=== PATIENT | female | born 1990 | race American Indian/Alaskan Native ===

== ENCOUNTER 2019-01-28 11:09 | Inpatient (IN) | payer BC, OTHER ==
[2019-01-28] MEDS ORDERED: SUBLIMAZE ONE (11:33)
[2019-01-28] MEDS ORDERED: XYLOCAINE 2% INFILTRATI ONE ×2 (11:48→12:00)
[2019-01-28] MEDS ORDERED: MILK OF MAGNESIA PO PRN (11:53)
[2019-01-28] MEDS ORDERED: TUCKS PAD TP PRN (11:53)
[2019-01-28] MEDS ORDERED: DULCOLAX PR PRN (11:53)
[2019-01-28] MEDS ORDERED: ZOFRAN IV PRN (11:53)
[2019-01-28] MEDS ORDERED: PHENERGAN PO PRN (11:53)
[2019-01-28] MEDS ORDERED: DERMOPLAST TP PRN (11:53)
[2019-01-28] MEDS ORDERED: BENADRYL PO PRN (11:53)
[2019-01-28] MEDS ORDERED: LANSINOH TP PRN (11:53)
[2019-01-28] MEDS ORDERED: NORCO 5/325 PO PRN (11:53)
[2019-01-28] MEDS ORDERED: TYLENOL PO PRN (11:53)
--- NOTE | 2019-01-28 11:59 | History and Physical Report ---
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 of genital herpes: no Rash, Viral, or Febrile illness since last LMP? no Varicella/Chicken Pox Status: Previous Disease Genetic History Congenital Heart Defect: Mom: no Dad: no Loy Disease: Mom: no Dad: no Thalassemia Mom: no Dad: no Neural Tube Defect Mom: no Dad: no Down's Syndrome Mom: no Dad: no Teofilo-Sachs Mom: no Dad: no Sickle Cell Disease/Trait Mom: no Dad: no Hemophilia Mom: no Dad: no Muscular Dystrophy Mom: no Dad: no Cystic Fibrosis Mom: no Dad: no [place] Chorea Mom: no Dad: no Mental Retardation Mom: no Dad: no Fragile X Mom: no Dad: no Other Genetic/Chromosomal Disorder Mom: no Dad: no Child w/other defect Mom: no Dad: no Enviromental Exposures Xray Exposure: no Medication, drug, or alcohol use since LMP: no Chemical/Other Exposure: no Exposure to Cat Liter: no Hx of Parvovirus (Fifth Disease): no Occupational Exposure to Children: none Active Medications (reviewed today): PLUS 27-1 MG ORAL TABLET ( VIT-FE FUMARATE-FA) 1 po PNV () Current Allergies (reviewed today): No known allergies Past History Past Medical History: other (see HPI) Past Surgical History: other (see HPI) 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: other (see HPI) Family/Genetic History: other (see HPI) - Obstetrical History Expected Date of Delivery: 01/27/19 Actual Gestation: 40 Week(s) 1 Day(s) : 2 Para: 1 Hx # Term Pregnancies: 1 Number of Pregnancies: 0 Spontaneous Abortions: 0 Induced : 0 Number of Living Children: 1 Medications and Allergies Allergies Allergy/AdvReac Type Severity Reaction Status Date / Time No Known Allergies Allergy Unverified 01/28/19 11:38 Home Medications Medication Instructions Recorded Confirmed Last Taken Type Preplus Ca-Fe 27 mg-FA 1 mg Tb 1 tab PO DAILY 01/28/19 01/28/19 01/27/19 History Active Meds: Active Medications Acetaminophen (Tylenol) 650 mg PO Q4H PRN PRN Reason: Pain MILD(1-3)/Fever >100.5/PEDRO Acetaminophen/Hydrocodone Bitart ([place] 5/325) 1 each PO Q6H PRN PRN Reason: Pain, Moderate (4-6) Benzocaine/Menthol (Dermoplast) 1 spray TP PRN PRN PRN Reason: perineal pain Bisacodyl (Dulcolax) 10 mg AL BID PRN PRN Reason: Constipation Diphenhydramine HCl (Benadryl) 25 mg PO Q6H PRN PRN Reason: Itching Diphtheria/Tetanus/Acell Pertussis (Boostrix) 0.5 ml IM .ONCE ONE Stop: 01/29/19 11:54 Docusate Sodium (Colace) 100 mg PO BID YENNIFER Fentanyl (Sublimaze) 100 mcg IV ONCE ONE Stop: 01/28/19 12:01 Ferrous Sulfate (Feosol) 325 mg PO BID YENNIFER Oxytocin/Sodium Chloride (Pitocin/Ns 20 Unit/1000ml Drip) 20 units in 1,000 mls @ 125 mls/hr IV DIRECT YENNIFER Oxytocin/Sodium Chloride (Pitocin/Ns 20 Unit/1000ml Drip) 20 units in 1,000 mls @ 250 mls/hr IV DIRECT YENNIFER Ibuprofen (Ibuprofen) 600 mg PO Q6H YENNIFER Lidocaine (Xylocaine 2%) 20 ml INFILTRATI ONCE ONE Stop: 01/28/19 12:01 Magnesium Hydroxide (Milk Of Magnesia) 30 ml PO HS PRN PRN Reason: Constipation Multi-Ingredient Ointment (Lansinoh) 1 applic TP PRN PRN PRN Reason: Sore Nipples Multivitamins/Iron/Calcium ( Vitamin) 1 each PO QDAY YENNIFER Ondansetron HCl (Zofran) 4 mg IV Q8H PRN PRN Reason: Nausea And Vomiting Oxytocin (Pitocin) 10 unit IM ONCE ONE Stop: 01/28/19 12:01 Promethazine HCl (Phenergan) 25 mg PO Q6H PRN PRN Reason: Nausea And Vomiting Sodium Chloride (Sodium Chloride Flush Syringe 10 Ml) 10 ml IV PRN NR Witch Liana/Glycerin (Tucks Pad) 1 each TP PRN PRN PRN Reason: Hemorrhoid/cleansing/soothing Review of Systems All systems: negative - Vital Signs Vital signs: Vital Signs Pulse BP 93 H 127/66 01/28/19 11:45 01/28/19 11:45 Temp Pulse Resp BP Pulse Ox 93 H 127/66 01/28/19 11:45 01/28/19 11:45 - Physical Exam Breasts: Positive: normal Cardiovascular: Regular rate Lungs: Positive: Clear to auscultation, Normal air movement Abdomen: Positive: normal appearance, soft Genitourinary (Female): Positive: normal external genitalia, normal perenium Vulva: both: normal Vagina: Positive: normal moisture Uterus: Positive: normal size Anus/Rectum: Positive: normal perianal skin Extremities: Positive: normal - Obstetrical Cervical Dilatation: 10 Cervical Effacement Percentage: 100 station: +3 Results All other labs normal. Assessment and Plan 28 y/o @ 40+1 weeks, arrived in active labor and precipitously delivered female infant. GBS NEG. uncomplicated. Admission orders in EMR. - Patient Problems (1) Precipitate labor, with delivery Current Visit: Yes Status: Acute (2) 40 weeks gestation of Current Visit: Yes Status: Acute
[2019-01-28] MEDS ORDERED: PITOCin/NS 20 UNIT/1000ML DRIP 20 UNITS/1,000 ML BAG IV SCH ×2 (12:00)
[2019-01-28] MEDS ORDERED: SODIUM CHLORIDE FLUSH SYRINGE 10 ML IV SCH (12:00)
[2019-01-28] MEDS ORDERED: SUBLIMAZE IV ONE (12:00)
[2019-01-28 12:11] LABS: Basophils % (Auto) 0.5 % (0.0-1.8); Eosinophils % (Auto) 0.5 % (0.0-4.3); Hematocrit 34.6 % (30.3-42.9); Hemoglobin 11.4 gm/dl (10.1-14.3); Lymphocytes # (Auto) 2.8 K/mm3 (1.2-5.4); Mean Corpuscular HGB Conc 33 % (30-34); Mean Corpuscular Volume 84 fl (79-97); Monocytes # (Auto) 0.5 K/mm3 (0.0-0.8); Monocytes % (Auto) 5.1 % (0.0-7.3); Platelet Count 194 K/mm3 (140-440); Red Blood Count 4.11 M/mm3 (3.65-5.03); Red Cell Distribution Width 15.4 % (13.2-15.2)
--- NOTE | 2019-01-28 12:13 | Procedure Note ---
OB Delivery Note - Delivery Date of Delivery: 01/28/19 (precip del female ) Kindergartner: RINA KINGSLEY (Milly Mazariegos present for delivery) Estimated blood loss: other (250) - Vaginal Delivery presentation: vertex Delivery position: OA Intrapartum events: precipitous labor- <3hr Delivery induction: none Delivery monitor: none Delivery placenta: spontaneous Delivery cord: 3 umbilical vessels Episiotomy: none Delivery laceration: 2nd degree Delivery repair: vicryl Anesthesia: local Delivery comments: spontaneous vaginal delivery while transferring from stretcher to bed, Lg HERNANDEZM in attendance. Placenta del intact and complete. 2nd degree laceration repaired under local. EBL 250, apagrs 03/09. Mother and infant bonding well, breast feeding initiated. - Infant A at 1 minute: 8 at 5 minutes: 9 Infant Gender: Female (7#15oz)
[2019-01-28] MEDS: IBUPROFEN PO SCH ×2 (17:38→23:23)
[2019-01-28] MEDS: FEOSOL PO SCH (23:23)
[2019-01-28] MEDS: COLACE PO SCH (23:24)
[2019-01-29] MEDS ORDERED: BOOSTRIX IM ONE (06:00)
[2019-01-29] MEDS: IBUPROFEN PO SCH ×3 (06:03→18:21)
[2019-01-29 06:05] LABS: Hematocrit 29.9 % (30.3-42.9)
--- NOTE | 2019-01-29 06:26 | Discharge Summary ---
Providers - Providers Date of Admission: 01/28/19 11:30 Date of discharge: 01/29/19 (pt agrees with d/c) Attending physician: CHARLES HOWARD Primary care physician: [employer] Hospitalization Reason for admission: active labor, rupture of membranes, IUP at term Delivery: Episiotomy: none Laceration: 2nd degree Incision: normal, dry, intact Other procedures: none complications: none Discharge diagnosis: IUP at term delivered [place] baby: female Hospital course: uncomplicated precipitous vaginal delivery Pt w/o complaint. In good spirits. VSS FF below umb Lochia small Perineum slight swelling intact. H&H 05/29. No s/sx of anemia Doing well s/p vag delivery. P: d/c today with instructions RTO 4 weeks PP care Condition at discharge: Good Disposition: DC-01 TO HOME OR SELFCARE - Discharge Diagnoses (1) (normal spontaneous vaginal delivery) Status: Acute Comment: RTO 4 weeks PP care Plan - Provider Discharge Summary Activity: routine, no sex for 6 weeks, no heavy lifting 4 weeks, no strenuous exercise Diet: routine Instructions: routine Additional instructions: [] Smoking cessation referral if applicable(refer to patient education folder for contact #) [] Refer to [facility] Booklet Call your doctor immediately for: * Fever > 100.5 * Heavy vaginal bleeding ( >1 pad per hour) * Severe persistent headache * Shortness of breath * Reddened, hot, painful area to leg or breast * Drainage or odor from incision. * Keep incision clean and dry at all times and follow doctor's instructions regarding bathing/showering - Follow up plan Follow up: PRIMARY CARE, [Primary Care Provider] - 7 Days LORE RICHARDS CNM [Advanced Practice Nurse] - 02/27/19 (Congratulations! Please call [phone] to schedule your visit in 4 weeks. Motrin/ibuprofen for cramping/pain. Call with concerns. Dermoplast [place] TUCKS pads)
[2019-01-29] MEDS: FEOSOL PO SCH (09:28)
[2019-01-29] MEDS: COLACE PO SCH (09:28)
[2019-01-29] MEDS ORDERED: PRENATAL VITAMIN PO SCH (10:00)
[2019-01-29 17:11] VITALS: BP 109/63
== END 2019-01-29 18:35 | disposition home or self-care (01) | DRG 807 ==
LOC: TRG 11:09 → LD 11:30 → OB 14:26
PROVIDERS: ADMIT Obstetrics & Gynecology; ATTEND Obstetrics & Gynecology
PROC: 10E0XZZ Delivery of Products of Conception, External Approach (ICD-10-PCS; principal; 2019-01-28)
PROC: 0KQM0ZZ Repair Perineum Muscle, Open Approach (ICD-10-PCS; 2019-01-28)
PROC: 3E0234Z Introduction of Serum, Toxoid and Vaccine into Muscle, Percutaneous Approach (ICD-10-PCS; 2019-01-29)
DX: O62.3 Precipitate labor (principal); Z37.0 Single live birth; O70.1 Second degree perineal laceration during delivery; Z3A.40 40 weeks gestation of pregnancy; Z23 Encounter for immunization
CPT/HCPCS: 36415; 85014; 85018; 85025; 86592; 86850; 86900; 86901; 90471; 90715; G0378; A6250; J2590; J3010